=== PATIENT | male | born 2000 | race Caucasian/White ===

== ENCOUNTER 2022-01-08 09:05 | Emergency (ER) | payer OTHER ==
[~2022-01-08] VITALS: Ht 162.5 cm; Wt 90.7 kg
== END 2022-01-08 09:53 | disposition home or self-care (01) ==
LOC: ED 09:05
DX: T23.201A Burn of second degree of right hand, unspecified site, initial encounter (principal); X10.2XXA Contact with fats and cooking oils, initial encounter; Y93.89 Activity, other specified; Y92.89 Other specified places as the place of occurrence of the external cause; Y99.0 Civilian activity done for income or pay